=== PATIENT | male | born 1960 | race African-American/Black ===

== ENCOUNTER 2021-03-22 10:12 | Emergency (ER) | payer BC ==
[2021-03-22 10:24] VITALS: BP 166/108; PULSE 71
--- NOTE | 2021-03-22 10:48 | EDM.PDOC ---
ED HPI GENERAL MEDICAL PROBLEM - General Chief Complaint: Chest Pain Stated Complaint: chest pain Time Seen by Provider: 03/22/21 10:20 Source of Information: Reports: Patient History Limitations: Reports: No Limitations - History of Present Illness INITIAL COMMENTS - FREE TEXT/NARRATIVE: Patient is 61-year-old male presenting to the emergency room with a chief complaint of chest pain. Patient reports the pain is in the middle of his chest and nonradiating. Pain is been 3 days in duration. Patient feels the pain pretty constantly. He reports the pain is worse when he extends his head to look up. Reports Advil does improve his pain somewhat but not fully go away. Patient denies any nausea, shortness of breath, exertional pain, coughing, dizziness, diaphoresis. Patient has no prior history of similar symptoms. No recent injuries. Patient denies any history of ID or stroke. Patient stopped taking hypertension medications back in November because he states he was feeling well. Chest Pain Score (Numeric/FACES): 6 - Related Data Allergies Allergy/AdvReac Type Severity Reaction Status Date / Time No Known Allergies Allergy Verified 03/22/21 10:25 Home Meds: Home Meds lisinopriL [Lisinopril] 5 mg PO DAILY 03/22/21 [History] Past Medical History HEENT History: Reports: Impaired Vision Cardiovascular History: Reports: Hypertension - Past Surgical History Cardiovascular Surgical History: Reports: None Social & Family History - Tobacco Use Tobacco Use Status *Q: Never Tobacco User ED ROS GENERAL - Review of Systems Review Of Systems: See Below Free Text/Narrative/Comment: In addition to that documented in the HPI above, the additional ROS was obtained: Constitutional: Denies fevers or chills Eyes: Denies vision changes ENMT: Denies sore throat CV: Per HPI Resp: Denies SOB GI: Denies vomiting or diarrhea : Denies painful urination MSK: Denies recent trauma Skin: Denies new rashes Neuro: Denies new numbness or tingling or weakness Endocrine: Denies unexpected weight loss Heme: Denies bleeding disorders ED EXAM, GENERAL - Physical Exam Exam: See Below Free Text/Narrative:: I have reviewed the triage vital signs Const: Well nourished, well developed, appears stated age Eyes: Pupils Equal and reactive to light bilaterally, no conjunctival injection HENT: No signs of trauma or swelling, Neck supple without meningismus CV: Regular Rate Rhythm, Warm, well-perfused extremities RESP: Unlabored respiratory effort GI: soft, non-tender, non-distended, no masses MSK: No gross deformities appreciated Skin: Warm, dry. 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 Sensation and motor function of extremities grossly intact. Psych: Appropriate mood and affect. Course - Vital Signs Last Recorded V/S: Last Vital Signs Temp 36.6 C 03/22/21 10:22 Pulse 71 03/22/21 10:22 Resp 18 03/22/21 10:22 BP 166/108 H 03/22/21 10:22 Pulse Ox 100 03/22/21 10:22 - Orders/Labs/Meds Orders: Active Orders 24 hr Category Date Time Status Chest 2V [CR] Stat Exams 03/22/21 10:30 Taken Labs: Laboratory Tests 03/22/21 03/22/21 Range/Units 10:40 10:40 WBC 4.60 (4.23-9.07) K/mm3 RBC 5.33 (4.63-6.08) M/mm3 Hgb 16.0 (13.7-17.5) gm/dl Hct 47.3 (40.1-51.0) % MCV 88.7 (79.0-92.2) fl MCH 30.0 (25.7-32.2) pg MCHC 33.8 (32.2-35.5) g/dl RDW Std Deviation 45.5 H (35.1-43.9) fL Plt Count 197 (163-337) K/mm3 MPV 10.1 (9.4-12.3) fl Neut % (Auto) 44.4 (34.0-67.9) % Lymph % (Auto) 44.8 (21.8-53.1) % [place] % (Auto) 8.7 (5.3-12.2) % Eos % (Auto) 1.7 (0.8-7.0) Baso % (Auto) 0.4 (0.1-1.2) % Neut # (Auto) 2.04 (1.78-5.38) K/mm3 Lymph # (Auto) 2.06 (1.32-3.57) K/mm3 [place] # (Auto) 0.40 (0.30-0.82) K/mm3 Eos # (Auto) 0.08 (0.04-0.54) K/mm3 Baso # (Auto) 0.02 (0.01-0.08) K/mm3 Sodium 138 (136-145) mEq/L Potassium 3.7 (3.5-5.1) mEq/L Chloride 104 (98-107) mEq/L Carbon Dioxide 27 (21-32) mEq/L Anion Gap 10.7 (5-15) BUN 12 (7-18) mg/dL Creatinine 0.9 (0.7-1.3) mg/dL Est Cr Clr Drug Dosing TNP Estimated GFR (MDRD) > 60 (>60) mL/min BUN/Creatinine Ratio 13.3 L (14-18) Glucose 108 H (70-99) mg/dL Calcium 8.6 (8.5-10.1) mg/dL Total Bilirubin 0.5 (0.2-1.0) mg/dL AST 25 (15-37) U/L ALT 49 (16-63) U/L Alkaline Phosphatase 75 (46-116) U/L Troponin I < 0.017 (0.00-0.056) ng/mL Total Protein 7.1 (6.4-8.2) g/dl Albumin 3.8 (3.4-5.0) g/dl Globulin 3.3 gm/dL Albumin/Globulin Ratio 1.2 (1-2) Meds: Medications Discontinued Medications Generic Name Dose Route Start Last Admin Trade Name Freq PRN Reason Stop Dose Admin Ketorolac Tromethamine 15 mg 03/22/21 11:17 Ketorolac 15 Mg/Ml Sdv IVPUSH 03/22/21 11:18 ONETIME ONE Departure - Departure Time of Disposition: 11:30 Disposition: Home, Self-Care 01 Clinical Impression: Atypical chest pain Instructions: Nonspecific Chest Pain, Adult Referrals: Rachele Noyola MD [Primary Care Provider] - Forms: ED Department Discharge Additional Instructions: I recommend continued use of anti-inflammatory medication such as ibuprofen every 6-8 hours as needed for pain. Return should your symptoms worsen or if you have any other emergent concerns. Otherwise, please follow-up with primary care in the next several days. Sepsis Event Note (ED) - Evaluation Sepsis Screening Result: No Definite Risk - Focused Exam Vital Signs: Vital Signs Temp Pulse Resp BP Pulse Ox 03/22/21 10:22 36.6 C 71 18 166/108 H 100 - My Orders Last 24 Hours: My Active Orders 03/22/21 10:30 Chest 2V [CR] Stat - Assessment/Plan Last 24 Hours: My Active Orders 03/22/21 10:30 Chest 2V [CR] Stat Assessment:: Patient is a 61-year-old male presenting to the emergency room with a chief complaint chest pain. Patient had unremarkable ER course. EKG demonstrates normal sinus rhythm without ischemic changes. Patient has a heart score of 2. Pulmonary embolism is extremely unlikely given patient is under percent O2 saturation and no risk factors. Likely musculoskeletal chest pain given positional changes and improvement with anti-inflammatory medication. Patient does not require admission to the hospital. Laboratory studies reviewed without significant abnormalities. Patient discharged in stable condition.
[2021-03-22] MEDS ORDERED: Ketorolac 15 MG/ML SDV IVPUSH ONE (11:17)
--- NOTE | 2021-03-22 16:43 | CR ---
Chest: 2 views of the chest were obtained. Comparison: No prior chest imaging is available. Heart size is at the upper limits of normal. Moderately large hiatal hernia is seen. Upper mediastinum is normal. Lungs are clear with no acute parenchymal change. Minimal degenerative change is seen within the spine. Impression: 1. Findings as noted above. 2. Nothing acute is seen on 2 view chest x-ray. Diagnostic code #2
== END 2021-03-22 11:45 | disposition home or self-care (01) ==
LOC: JD.ED 10:12
DX: R07.89 Other chest pain (principal); I10 Essential (primary) hypertension; Z79.899 Other long term (current) drug therapy
CPT/HCPCS: 36415; 71046; 71046-26; 80053; 84484; 85025; 93005; 99285-25